=== PATIENT | male | born 1945 | race Caucasian/White ===

== ENCOUNTER 2017-03-14 10:55 | Day surgery (SDC) | payer MEDICARE, OTHER ==
[~2017-03-14] VITALS: Ht 170.2 cm; Wt 74.8 kg
--- NOTE | 2017-03-14 07:46 | PCM.HPANE ---
Patient Data Surgeon Admitting Provider: Attending Provider:Jerad Oneill MD Primary Care Physician:Amos Pete DO Other Provider:Loraine Bossingham Anesthesia Reason for Visit Adenomatous Polyp Of Colon Barretts Ht/WT & BMI Body Mass Index Allergies Coded Allergies: No Known Drug Allergies (Verified Allergy, Unknown, 01/06/15) Past Anesthesia History Anesthesia History: Denies:: Abnormal Airway, Anesthesia Reactions, Difficult Intubation, Fam Anesthesia Reaction, Fam Malignant Hypertherm, Malignant Hyperthermia Diabetes History Hx Diabetes?: No MRSA MRSA: No Medications Reported Medications Esomeprazole Magnesium (Nexium)40 Mg Capsule.dr40 Mg PO DAILY Ref 0 03/14/17 Timolol (Betimol)5 Ml Drops1 Drop OP DAILY 03/14/17 Cetirizine HCl (Zyrtec)10 Mg [id number] Mg PO HS #30 CAPSULE Ref 0 03/12/17 Albuterol Sulfate (Ventolin HFA Inhaler)200 Puff/18 Gm Inhaler2 Puff INH Q4 PRN For Wheezing #1 INHALER Ref 0 03/12/[address] 40 Mg Tablet.dr40 Mg PO DAILY Ref 0 03/12/17 Kristie Root (Kristie)250 Mg Tiqreah211 Mg PO DAILY 03/12/17 Garlic 500 Mg [id number] Mg PO DAILY 03/12/17 Latanoprost (Xalatan)2.5 Ml Drops1 Drop BOTH_EYES HS #1 BOTTLE Ref 0 01/06/15 Discontinued Reported Medications Timolol Maleate 5 Ml Drops5 Ml OP 01/06/15 Esomeprazole Magnesium (Nexium)40 Mg Capsule.dr40 Mg PO DAILY 30 Days Ref 0 01/06/15 Timolol (Betimol)5 Ml Drops5 Ml OP BID 01/06/15 History History of ENT Problems?: No HEENT History: Positive for:: Hearing Problem Denies:: Abnormal Airway Difficult Intubation Dysphagia Denture Type: None Teeth Condition: Within Normal Limits Hx of Heart Problems?: No Cardiovascular History: Denies:: Atrial Fibrillation Chest Pain Hypertension Valvular Heart Disease Hx of Respiratory Problem?: Yes Respiratory History: Positive for:: COPD Cough (OCCAIONAL) Denies:: Asthma Hemoptysis Pneumonia Tuberculosis Hx Neurologic Problems?: No Neurological History: Denies:: CVA Hx of GI Problems?: Yes Hx of Problems?: No Hx Musculoskeletal Problems?: No Musculoskeletal History: Denies:: Joint Replacement Hx of Psycho/Social Problems?: No Psycho Social History: Denies:: Anxiety Hx Depression Hx Surgeries?: Yes (SKIN TUMOR REMOVAL, HERNIA VENTRAL ) Hx Any Other Health Problems?: Yes Hx Diabetes: No Hx Alcohol Use: Yes (1 DRINK - 4 - 5 TIMES A WEEK) Smoking Status: Former Smoker Stop/Bang Risk Assessment Category Category 1A: Patient has history of documented sleep apnea, and HAS NOT received any narcotic, sedative or anesthesia administration during this stay. Category 1B: Patient has history of documented sleep apnea, and HAS received any narcotic , sedative or anesthesia administration during this stay Category 2: Patient has SUSPECTED Obstructive Sleep Apnea, and HAS received any narcotic , sedative or anesthesia administration during this stay. Category 3: Patient has SUSPECTED Obstructive Sleep Apnea and HAS NOT received narcotic, sedative or anesthesia administration during this stay. Category 4: Outpatient in Procedural Areas with known sleep apnea or who screen positive for High Risk via the STOP/BANG questionnaire. Exam Exam General Appearance: Alert, Oriented X3, Cooperative, No Acute Distress HEENT/AIRWAY: MP 2, Neck Movement (from) Lungs: Clear to Auscultation Heart: Exam Unremarkable Plan Impression Patient chart reviewed, patient interviewed and anesthestic plan with risks, benefits, and alternatives discussed, and informed consent obtained. ASA Physical Status: ASA2 Mod Systemic Disease Anesthetic Plan: GA Bene/Risks/Altern/Consents: Yes HP Complete Prior to Induction: Yes Osvaldo Kunz MD Mar 14, 2017 07:46
[~2017-03-14 10:55] MED LIST: ALBU18HF INH; CETI10CA PO; GARL500C PO; GING250C PO; LATA2.5D5 BOTH_EYES; Lactated Ringer's 1,000 ML IV ONE; PANT40TA3 PO
[2017-03-14] MEDS ORDERED: Propofol 10,000 mCg/mL 20 mL Inj ONE (10:56)
[2017-03-14 11:16] VITALS: BP 162/87; PULSE 54; RESP 14; O2SAT 97
[2017-03-14] MEDS ORDERED: TIMO5DRO26 OP (11:23)
[2017-03-14] MEDS ORDERED: ESOM40CA41 PO (11:23)
[2017-03-14] MEDS ORDERED: Lactated Ringer's 1,000 ML IV SCH (12:02)
[2017-03-14] MEDS ORDERED: Ondansetron 2 mg/mL 2 mL Inj IVPUSH PRN (12:05)
[2017-03-14] MEDS ORDERED: MetoCLOpramide 5 mg/mL 2 mL Inj IVPUSH PRN (12:05)
[2017-03-14 12:18] VITALS: BP 122/68; PULSE 49; RESP 15; O2SAT 97
--- NOTE | 2017-03-14 12:20 | PCM.ENDEGD ---
EGD Date of Service: Mar 14, 2017 Physician Jerad Oneill MD Pre Procedure Diagnosis: Reflux questionable history of De La Rosa's Post Procedure Dx & Findings: PPossible De La Rosa's duodenal polyp Hiatal hernia scarring consistent with Schatzki's ring Procedure Esophagogastroduodenoscopy PROCEDURE IN DETAIL: Anesthesia used After proper sedation, Olympus video endoscope was inserted into patient's mouth and esophagus was successfully intubated. Scope introduced esophagus. Esophagus showed normal shiny whitish mucosa consistent with squamous cell component. Z line was at 40 cm from the incisors. There was about 2 cm hiatal hernia. Above the hiatal hernia there was a irregularity of the Z line which may indicate short segment De La Rosa's (< 2 cm). Narrow banding done. No ulcer or mass erosion mucosal abnormality noted. It was a superficial scarring consistent with wide-open Schatzki's. Biopsies were done at the suspected De La Rosa site for quadrant every 2 cm as well as a Schatzki's ring. These are placed in the same bottle. Scope further events to the stomach.. Stomach showed normal shiny mucosa with normal appearing rugae folds without any ulcer mass erosion. Cardia fundus body antrum pylorus were all visualized. Retroflexion was done. Stomach was easily inflated and deflatable using air. Scope further events to the distal duodenum. Duodenum revealed normal villous structures with normal appearing folds without any mass ulcer erosion. However at the duodenal bulb, there was a 3 mm polyp with adenomatous surface features. This was resected completely using cold snare. 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 Patient monitoring Continuous pulse oximetry, cardiac monitoring, blood pressure monitoring, IV access, and oxygen at 2L per nasal cannula. Complications There were no periprocedural complications identified. Post Procedure Plan Post Procedure Recommendations 1. Restrict activities today. 2. Resume normal activities in the morning. 3. Resume medications. 4. GERD behavioral modification: - Avoid fatty, acidic, spicy, large meals - Do not lie down after meals - Do not eat or drink anything for at least 2 1/2 hours before going to bed at night - Discontinue tobacco and alcohol - Decrease or avoid caffeine - Avoid chocolate and mints - Decrease weight - Avoid aspirin and non steroidal anti-inflammatory agents (NSAID) such as Aleve, Advil, Mobic, Naproxen, Ibuprofen, etc 5. Add proton pump inhibitor. Take 30 minutes before 1st meal of the day. 6. Patient informed of normal post procedure side effects as bloating, drowsiness, blood streaking in the stool 7. If gastric biopsy reveal H.pylori, continue with appropriate treatment 8. If small bowel biopsy reveals celiac, continue with appropriate treatment 9. Please don't hesitate to call me with any questions Jerad Oneill MD Mar 14, 2017 12:20
--- NOTE | 2017-03-14 12:22 | PCM.ENDCOL ---
Colonoscopy Date of Service: Mar 14, 2017 Physician Jerad Oneill MD Pre Procedure Diagnosis: History of polyps Post Procedure Dx & Findings: Polyp hemorrhoids diverticula Procedure Colonoscopy PROCEDURE IN DETAIL: Prep adequate Withdrawal time 13 minutes After unremarkable rectal examination the Olympus video colonoscope was inserted patient's anal canal and was advanced to cecum. Landmarks were identified including the ileocecal valve and appendiceal orifice. Scope was withdrawn systematically. Visualized colonic mucosa showed healthy shiny mucosa with normal healthy-appearing vasculature. In the rectum, there were 2 polyps. These were less than 1 mm in size. They are both removed completely using cold forceps. In the sigmoid colon and into the transverse colon there were small to medium sized diverticuli. Mostly in the sigmoid colon. In the rectum retroflexion was done which showed hemorrhoids. Anal canal was inspected carefully on the way out and hemorrhoids noted. Impression Personal history of colon polyp Polyps 2 status post complete removal Diverticuli Hemorrhoids Recommendation Repeat colonoscopy 5 years Diverticular diet Presedation Assessment Risks and Benefits Informed consent was obtained from the patient after all risks and benefits including but not limited to drug reaction, infection, pain, bleeding, perforation, as well as alternatives were discussed. Patient monitoring Continuous pulse oximetry, cardiac monitoring, blood pressure monitoring, IV access, and oxygen at 2L per nasal cannula. Complications There were no periprocedural complications identified. Post Procedure Plan Post Procedure Recommendations 1. Restrict activities today. 2. Resume normal activities in the morning. 3. Resume medications. 4. Patient informed of normal post procedure side effects as bloating, drowsiness, blood streaking in the stool. 5. average risk CRCS. If colon polyps come back as: -Hyperplastic- can repeat colonoscopy in 10 years -Tubular adenoma- repeat colonoscopy in 5 years -Tubulovillous/villous adenoma- repeat colonoscopy in 3 years -If any dysplasia- return to clinic as soon as possible 6. Please don't hesitate to call me with any questions. Jerad Oneill MD Mar 14, 2017 12:22
--- NOTE | 2017-03-14 12:25 | PCM.ANEP1 ---
Post Anesthesia PACU Phase 1 Assessment Vital Signs Vital Signs Date Time Temp Pulse Resp B/P Pulse Ox O2 Delivery O2 Flow Rate FiO2 03/14/17 12:18 49 15 122/68 97 Room Air 03/14/17 11:16 36.4 54 14 162/87 97 Room Air Anesthetic Administered: GA Level of Alertness: Awake, talking MARSH's with Equal Strength: Yes Pain: No Nausea or Vomiting: No CV Function & Hydration Stable: Yes Airway Device: Lungs: Normal Air Movement PACU Phase 2 Assessment Complications: No Follow up Care: No Patient Instructions Provided: N/A Osvaldo Kunz MD Mar 14, 2017 12:25
[2017-03-14 12:28] VITALS: BP 116/62; PULSE 50; RESP 15; O2SAT 95
[2017-03-14 12:38] VITALS: BP 136/69; PULSE 49; RESP 14; O2SAT 97
--- NOTE | 2017-03-18 11:00 | PATH ---
SURGICAL PATHOLOGY Attending Physician:Jerad Oneill M.D. CASE STATUS: Signed Out PATIENT NAME: NIKKO LOZA PID: [id number] : 1945 DATE COLLECTED:03/14/2017 00:00 SPECIMEN: 1: Esophagus, Biopsy 2: Duodenum, Biopsy 3: Rectum, Biopsy CLINICAL HISTORY: 1). DISTAL ESOPHAGUS BIOPSY 2). DUODENAL BULB POLYP X1 3). RECTAL POLYPS X2 FINAL DIAGNOSIS: 1. Distal Esophagus Biopsy: Squamocolumnar mucosa with inflammatory changes consistent with reflux. 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 Negative for dysplasia and malignancy. 2. Duodenal Bulb Polyp: Duodenal mucosa with gastric foveolar metaplasia. Negative for dysplasia or malignancy. 3. Rectal Polyps x2: Hyperplastic polyps, two. ICD10: K22.70 K62.1 GROSS DESCRIPTION: Received three formalin-filled containers, each labeled with the patient' s name. 1. Received in formalin, labeled with the patient' s name and "DE", are four fragments of johnson, soft tissue ranging from 0.2 x 0.1 x 0.1 cm to 0.3 x 0.2 x 0.1 cm. The fragments are totally submitted in cassette 1A. 2. Received in formalin, labeled with the patient' s name and "bulb polyp", are three fragments of johnson, soft tissue ranging from 0.1 x 0.1 x 0.1 cm to 0.3 x 0.1 x 0.1 cm. The fragments are totally submitted in cassette 2A. 3. Received in formalin, labeled with the patient' s name and "rectal", are three fragments of johnson, soft tissue ranging from 0.1 x 0.1 x 0.1 cm to 0.2 x 0.1 x 0.1 cm. The fragments are totally submitted in cassette 3A. [id number]) MICRO DESCRIPTION: Please see microscopic. ICD-9 CODES: CPT CODES: 1: 54059 2: 00298 3: 60722 Electronically Signed Out Lynn Phillip MD [facility] [address], [place] [address] Technical component performed at [facility], [facility] [address], [place], [address]
== END 2017-03-14 23:59 | disposition home or self-care (01) ==
LOC: END 10:55
PROVIDERS: ATTEND Internal Medicine
DX: Z12.11 Encounter for screening for malignant neoplasm of colon (principal); K63.5 Polyp of colon; K57.30 Diverticulosis of large intestine without perforation or abscess without bleeding; K64.8 Other hemorrhoids; K21.9 Gastro-esophageal reflux disease without esophagitis; K22.70 Barrett's esophagus without dysplasia; K31.7 Polyp of stomach and duodenum; K44.9 Diaphragmatic hernia without obstruction or gangrene; J44.9 Chronic obstructive pulmonary disease, unspecified; Z86.010 Personal history of colon polyps; Z79.899 Other long term (current) drug therapy; Z87.891 Personal history of nicotine dependence
CPT/HCPCS: 43239; 43251; 45380; J2704; J7120